=== PATIENT | female | born 1995 ===

== ENCOUNTER 2018-01-18 18:16 | Emergency (ER) | payer SELFPAY ==
[2018-01-18 19:08] VITALS: BMI 21.6
[2018-01-18 19:16] VITALS: RESP 18; O2SAT 100
--- NOTE | 2018-01-18 19:26 | ED PDOC ---
Arrival/HPI - General Chief Complaint: Abnormal Skin Integrity Time Seen by Provider: 01/18/18 19:07 Historian: Patient - History of Present Illness Narrative History of Present Illness (Text): 22 y/o F w/ no PMH presenting with finger injury. Patient states she was at home yesterday when she accidentally slammed the door into her hand, causing the acrylic extention from her 4th digit to become dislodged from her hand. The patient denies any bleeding, swelling or cyanosis of the hand, but reports worsening of the pain. She denies nausea, emesis, dizziness, lightheadedness, weakness, dropping objects with the hand or numbness and tingling. She denies taking any medications for the pain prior to arrival. Time/Duration: 24 hours Symptom Onset: Gradual Symptom Course: Worsening Quality: Aching Severity Level: 5 Activities at Onset: Rest Context: Home Past Medical History - Provider Review Nursing Documentation Reviewed: Yes - Travel History Have you recently traveled outside [place] w/in the past 3 mons?: No - Past History Past History: Non-Contributing - Psychiatric Hx Substance Use: No Family/Social History - Physician Review Nursing Documentation Reviewed: Yes Family/Social History: Unknown Family HX Smoking Status: Current Some Days Smoker Hx Alcohol Use: No Hx Substance Use: No Allergies/Home Meds Allergies/Adverse Reactions: Allergies No Known Allergies Allergy (Verified 01/18/18 19:08) Home Medications: Home Meds Medication Instructions Recorded Confirmed No Known Home Med 01/18/18 01/18/18 Review of Systems - Physician Review All systems were reviewed & negative as marked: Yes - Review of Systems Skin: Other (erroded nail bed seen on 4th digit) Physical Exam Vital Signs Reviewed: Yes Vital Signs Temp Pulse Resp BP Pulse Ox 01/18/18 22:00 98.5 F 89 18 120/82 100 01/18/18 19:08 98.6 F 92 H 18 124/86 100 Temperature: Afebrile Blood Pressure: Normal Pulse: Regular Respiratory Rate: Normal Appearance: Positive for: Well-Appearing Mental Status: Positive for: Alert and Oriented X 3 - Systems Exam Head: Present: Atraumatic, Normocephalic Respiratory/Chest: Present: Clear to Auscultation, Good Air Exchange. No: Respiratory Distress Cardiovascular: Present: Regular Rate and Rhythm, Normal S1, S2. No: Murmurs Abdomen: Present: Normal Bowel Sounds. No: Tenderness, Distention, Peritoneal Signs Upper Extremity: Present: Normal Inspection, Normal ROM, NORMAL PULSES, Tenderness (tenderness to palpation of the 4th digit of R hand), Capillary Refill < 2s. No: Cyanosis, Edema, Swelling, Erythema Neurological: Present: GCS=15, CN II-XII Intact, Motor Func Grossly Intact, Normal Sensory Function Skin: Present: Warm, Dry, Normal Color. No: Rashes Medical Decision Making ED Course and Treatment: 01/18/18 20:20 Impression 22F w/ dislodged acrylic nail Plan --XR finger --Motrin --Reassess & disposition Progress Notes: 01/18/18 22:09 XR finger Impression: Negative for fracture. Patient updated on findings of XR and advised to keep finger clear of dirt. Bacitracin and Kerlix dressing applied. On re-evaluation, patient feels better and is in no acute distress. I have discussed the results and plan with the patient, who expresses understanding. Patient in agreement with plan to be discharged home. Patient is stable for discharge. Patient was instructed to follow up with physician or return if symptoms worsen or new concerning symptoms arise. - RAD Interpretation Radiology Orders: 01/18/18 21:58 HAND RIGHT 4TH DIGIT (FINGER) [RAD] Stat - Medication Orders Current Medication Orders: Discontinued Medications Ibuprofen (Motrin Tab) 600 mg PO STAT STA Stop: 01/18/18 20:23 Last Admin: 01/18/18 21:34 Dose: 600 mg Disposition/Present on Arrival - Present on Arrival Any Indicators Present on Arrival: No History of DVT/PE: No History of Uncontrolled Diabetes: No Urinary Catheter: No History of Decub. Ulcer: No History Surgical Site Infection Following: None - Disposition Have Diagnosis and Disposition been Completed?: Yes Diagnosis: Fingernail avulsion Disposition: HOME/ ROUTINE Disposition Time: 22:09 Patient Plan: Discharge Condition: STABLE Discharge Instructions (ExitCare): Nail Avulsion (DC) Additional Instructions: Please keep hand away from direct contact from dirt. Monitor for any signs of pus or discharge from the nail bed. Referrals: America Renae MD [Medical Doctor] - Follow up with primary [facility] [employer] [facility] [Outside] - Follow up with primary Forms: [employer] (Nepali)
[2018-01-18 22:35] VITALS: BP 120/82; PULSE 89; TEMP 98.5
--- NOTE | 2018-01-19 10:35 | RAD ---
Date of service: 01/18/2018 PROCEDURE: Right ring finger radiographs. HISTORY: finger injury COMPARISON: None. TECHNIQUE: AP radiograph of the right hand, as well as spot oblique and lateral images of ring finger were obtained. FINDINGS: RIGHT RING FINGER: Normal right ring finger, without fracture or focal lesion. Remainder of the right hand (as seen on the AP view) grossly unremarkable. JOINTS: Normal. SOFT TISSUES: There is a 2 mm radiopaque foreign body in the dorsal soft tissues of the tip of the little finger and tip of the index finger. OTHER FINDINGS: None. IMPRESSION: No acute fracture or dislocation. 2 mm foreign body in the dorsal soft tissues of the tip of the index and little fingers.
== END 2018-01-18 22:00 | disposition home or self-care (01) ==
LOC: ED 18:16
DX: S61.204A Unspecified open wound of right ring finger without damage to nail, initial encounter (principal); W23.0XXA Caught, crushed, jammed, or pinched between moving objects, initial encounter; Y92.009 Unspecified place in unspecified non-institutional (private) residence as the place of occurrence of the external cause